=== PATIENT | female | born 1995 | race Caucasian/White ===

== ENCOUNTER → 2020-01-31 | Outpatient (CLI) | payer BC, OTHER ==
[~2020-01-31] MED LIST: PRENATAL PO
== END ==
LOC: MRI 13:58
PROVIDERS: ATTEND Ophthalmology
DX: D48.7 Neoplasm of uncertain behavior of other specified sites (principal)

== ENCOUNTER → 2020-02-19 | Outpatient (CLI) | payer BC, OTHER | LOC: LAB 11:27 | PROVIDERS: ATTEND Anesthesiology | DX: Z01.812 Encounter for preprocedural laboratory examination (principal); Z11.59 Encounter for screening for other viral diseases ==